=== PATIENT | female | born 1975 | race Caucasian/White ===

== ENCOUNTER 2018-10-20 21:30 | Inpatient (IN) | payer OTHER ==
[~2018-10-20] VITALS: Ht 167.6 cm; Wt 108.0 kg
--- NOTE | 2018-10-20 22:01 | NUR ---
[facility]/o slide from chair to floor at approximately 2100 after feeling cramp in right hip and trying to straighten leg. Pt states she sat on her left leg for approximately 30mins and felt leg numbness after. Right hip replacement 10/17/2018 w/o complications. Received 4 zofran and 200mcg fentanyl IVP group captain from [facility].
[2018-10-20] MEDS ORDERED: ASPI-496 PO (22:07)
[2018-10-20] MEDS ORDERED: CARI350T PO (22:07)
[2018-10-20] MEDS ORDERED: DICL50TA2 PO (22:07)
[2018-10-20] MEDS ORDERED: OXYC5CAP2 PO (22:07)
--- NOTE | 2018-10-20 22:07 | NUR ---
Sensation present in all extemities and pulses present BLE
--- NOTE | 2018-10-20 22:10 | NUR ---
Pt to x-ray
[2018-10-20] MEDS ORDERED: PROPOFOL 10 MG/ML, 20ML ONE (22:25)
[2018-10-20] MEDS ORDERED: SODIUM CHLORIDE FLUSH 10ML SYR IVF ONE (22:30)
[2018-10-20] MEDS ORDERED: PROPOFOL 10 MG/ML, 20ML IVPush ONE (22:30)
[2018-10-20] MEDS ORDERED: SODIUM CHLORIDE 0.9% 1,000ML IVBOLUS ONE (22:30)
--- NOTE | 2018-10-20 22:33 | NUR ---
Pt transferred to Trauma 2; report given to ROSARIO Myles
--- NOTE | 2018-10-20 22:33 | NUR ---
FIRST PT CONTACT AT THIS TIME, CONSCENT OBTAINED, FAMILY TO LOBBY, PT TEARFUL. PT HAS FALSE TEETH PER HER REPORT, WILL REMOVE FOR SAFETY.
--- NOTE | 2018-10-20 22:40 | NUR ---
PROCEDURE BEGUN, DR HOLLIS ADMINISTER MEDICATIONS
--- NOTE | 2018-10-20 22:46 | NUR ---
PT WITH ADEQUATE SEDATION THROUGHOUT PROCEDURE, SPO2 100% CAP 9, AWAIT CHEST XRAY Addendum: 10/20/18 at 2248 by MENDOZA CAP
--- NOTE | 2018-10-20 22:50 | NUR ---
CAPNOGRAPHY NOT FUNCTIONING, PROCEDURE CONTINUE.
--- NOTE | 2018-10-20 23:00 | NUR ---
SLEEPING QUIETLY, AWAKEN VERBAL, SPO2 REMAINS 100% 2L AT THIS TIME,
--- NOTE | 2018-10-20 23:11 | NUR ---
PT AWAKE, ALERT AND ORIENTED, MOVED BACK TO ORIGINAL ROOM AND FAMILY FROM LOBBY.
--- NOTE | 2018-10-20 23:20 | NUR ---
REPORT TO ROSALES PONCE
--- NOTE | 2018-10-21 00:29 | NUR ---
Pt unable to ambulate post reduction c/o increased pain. Report given to ROSARIO Chau
[2018-10-21 01:30] VITALS: BP 103/68
[2018-10-21] MEDS ORDERED: KETOROLAC 30 MG/1 ML IVPush PRN (01:30)
[2018-10-21 02:37] VITALS: BP 103/68
[2018-10-21] MEDS ORDERED: OXYcodone IR 5MG TABLET PO ONE (03:45)
[2018-10-21] MEDS ORDERED: DOCUSATE 100 MG CAPSULE PO PRN (04:30)
[2018-10-21] MEDS: METHOCARBAMOL 500 MG TABLET PO PRN ×4 (04:34→22:41)
[2018-10-21] MEDS: OXYcodone IR 5MG TABLET PO PRN ×4 (04:34→22:41)
[2018-10-21] MEDS: ENOXAPARIN 40 MG/0.4 ML SQ SCH (04:34)
[2018-10-21] MEDS: CARISOPRODOL 350 MG TABLET PO SCH (07:58)
[2018-10-21] MEDS: ASPIRIN 81 MG TABLET EC PO SCH (07:58)
[2018-10-21] MEDS: DICLOFENAC 50 MG TABLET.DR PO SCH (07:58)
[2018-10-21] MEDS: SENNA/DOCUSATE TABLET PO SCH (07:58)
[2018-10-21] MEDS: SODIUM CHLORIDE FLUSH 10ML SYR IVF SCH ×2 (07:59→20:58)
[2018-10-21 08:51] VITALS: BP 103/67
[2018-10-21] MEDS ORDERED: SODIUM CHLORIDE NASAL SPRAY 45ML BOTTLE NAS PRN (09:00)
[2018-10-21 15:37] VITALS: BP 123/72
[2018-10-21 18:37] VITALS: BP 106/70
[2018-10-21] MEDS: LIDODERM 5% PATCH TD SCH (20:55)
[2018-10-21] MEDS: ONDANSETRON 2MG/ML, 2ML IVPush PRN (22:46)
[2018-10-21] MEDS ORDERED: GABAPENTIN 300 MG CAPSULE PO ONE (23:00)
[2018-10-22 02:06] VITALS: BP 117/79
[2018-10-22] MEDS: METHOCARBAMOL 500 MG TABLET PO PRN ×3 (04:37→14:12)
[2018-10-22] MEDS: OXYcodone IR 5MG TABLET PO PRN ×4 (04:37→22:53)
[2018-10-22] MEDS: ENOXAPARIN 40 MG/0.4 ML SQ SCH (04:38)
[2018-10-22 07:14] VITALS: BP 98/53
[2018-10-22] MEDS: DICLOFENAC 50 MG TABLET.DR PO SCH (08:02)
[2018-10-22] MEDS: CARISOPRODOL 350 MG TABLET PO SCH ×3 (08:02→21:01)
[2018-10-22] MEDS: SENNA/DOCUSATE TABLET PO SCH (08:02)
[2018-10-22] MEDS: ASPIRIN 81 MG TABLET EC PO SCH (08:02)
[2018-10-22] MEDS: SODIUM CHLORIDE FLUSH 10ML SYR IVF SCH ×2 (09:00→21:01)
[2018-10-22] MEDS: DICLOFENAC SODIUM 75 MG TABLET.DR PO SCH ×2 (09:00→21:00)
[2018-10-22] MEDS: ONDANSETRON 2MG/ML, 2ML IVPush PRN ×3 (09:20→21:01)
[2018-10-22] MEDS: GABAPENTIN 100 MG CAPSULE PO SCH ×3 (09:20→21:00)
[2018-10-22] MEDS: LIDODERM 5% PATCH TD SCH (09:30)
[2018-10-22] MEDS: POLYETHYLENE GLYCOL 17 GM PACKET PO PRN (09:35)
[2018-10-22 15:44] VITALS: BP 101/67
[2018-10-22 20:32] VITALS: BP 99/56
[2018-10-23] MEDS: METHOCARBAMOL 500 MG TABLET PO PRN ×4 (00:09→23:16)
[2018-10-23 04:39] VITALS: BP 90/57
[2018-10-23] MEDS: OXYcodone IR 5MG TABLET PO PRN ×5 (04:44→22:26)
[2018-10-23] MEDS: ENOXAPARIN 40 MG/0.4 ML SQ SCH (04:44)
[2018-10-23 07:52] VITALS: BP 104/54
[2018-10-23] MEDS: GABAPENTIN 100 MG CAPSULE PO SCH ×3 (09:12→20:49)
[2018-10-23] MEDS: ONDANSETRON 2MG/ML, 2ML IVPush PRN ×3 (09:12→23:16)
[2018-10-23] MEDS: DICLOFENAC SODIUM 75 MG TABLET.DR PO SCH ×2 (09:12→20:49)
[2018-10-23] MEDS: POLYETHYLENE GLYCOL 17 GM PACKET PO PRN (09:13)
[2018-10-23] MEDS: ASPIRIN 81 MG TABLET EC PO SCH (09:13)
[2018-10-23] MEDS: SENNA/DOCUSATE TABLET PO SCH (09:13)
[2018-10-23] MEDS: CARISOPRODOL 350 MG TABLET PO SCH ×2 (09:19→20:58)
[2018-10-23] MEDS: LIDODERM 5% PATCH TD SCH (09:55)
[2018-10-23] MEDS: SODIUM CHLORIDE FLUSH 10ML SYR IVF SCH ×2 (10:18→20:49)
[2018-10-23 13:36] VITALS: BP 97/52
[2018-10-23 19:31] VITALS: BP 100/47
[2018-10-24] MEDS: OXYcodone IR 5MG TABLET PO PRN ×6 (02:49→23:28)
[2018-10-24 03:02] VITALS: BP 99/51
[2018-10-24] MEDS: METHOCARBAMOL 500 MG TABLET PO PRN ×3 (05:57→23:28)
[2018-10-24 07:41] VITALS: BP 92/51
[2018-10-24] MEDS: GABAPENTIN 100 MG CAPSULE PO SCH ×3 (07:52→19:21)
[2018-10-24] MEDS: ASPIRIN 81 MG TABLET EC PO SCH (07:52)
[2018-10-24] MEDS: CARISOPRODOL 350 MG TABLET PO SCH ×2 (07:52→19:21)
[2018-10-24] MEDS: DICLOFENAC SODIUM 75 MG TABLET.DR PO SCH ×2 (07:52→19:21)
[2018-10-24] MEDS: ONDANSETRON 2MG/ML, 2ML IVPush PRN (07:53)
[2018-10-24] MEDS ORDERED: ONDANSETRON ODT 4 MG ONE (07:58)
[2018-10-24] MEDS: SENNA/DOCUSATE TABLET PO SCH (09:00)
[2018-10-24] MEDS: SODIUM CHLORIDE FLUSH 10ML SYR IVF SCH ×2 (09:00→19:22)
[2018-10-24] MEDS: ENOXAPARIN 40 MG/0.4 ML SQ SCH (11:57)
[2018-10-24] MEDS ORDERED: METH500T7 PO (12:10)
[2018-10-24] MEDS ORDERED: GABA-826 PO (12:10)
[2018-10-24 13:50] VITALS: BP 103/64
[2018-10-24] MEDS: LIDODERM 5% PATCH TD SCH (13:56)
[2018-10-24] MEDS: ONDANSETRON ODT 4 MG PO PRN (16:37)
[2018-10-24 20:48] VITALS: BP 98/48
[2018-10-25] MEDS: OXYcodone IR 5MG TABLET PO PRN ×6 (03:43→23:37)
[2018-10-25] MEDS: METHOCARBAMOL 500 MG TABLET PO PRN ×3 (03:43→21:12)
[2018-10-25 03:44] VITALS: BP 105/56
[2018-10-25] MEDS: GABAPENTIN 100 MG CAPSULE PO SCH ×3 (06:49→21:05)
[2018-10-25] MEDS: ONDANSETRON ODT 4 MG PO PRN ×3 (06:49→21:05)
[2018-10-25] MEDS: ASPIRIN 81 MG TABLET EC PO SCH (07:33)
[2018-10-25] MEDS: SENNA/DOCUSATE TABLET PO SCH (07:33)
[2018-10-25] MEDS: DICLOFENAC SODIUM 75 MG TABLET.DR PO SCH ×2 (07:33→21:05)
[2018-10-25 07:41] VITALS: BP 102/51
[2018-10-25] MEDS: CARISOPRODOL 350 MG TABLET PO SCH ×2 (09:38→21:05)
[2018-10-25] MEDS: SODIUM CHLORIDE FLUSH 10ML SYR IVF SCH ×2 (09:38→21:00)
[2018-10-25 12:32] VITALS: BP 109/62
[2018-10-25] MEDS: ENOXAPARIN 40 MG/0.4 ML SQ SCH (12:40)
[2018-10-25 18:53] VITALS: BP 107/68
[2018-10-25] MEDS: LIDODERM 5% PATCH TD SCH (21:13)
[2018-10-25 23:55] VITALS: BP 97/51
[2018-10-26 02:06] VITALS: BP 106/62
[2018-10-26] MEDS: OXYcodone IR 5MG TABLET PO PRN ×5 (03:13→23:18)
[2018-10-26] MEDS: METHOCARBAMOL 500 MG TABLET PO PRN ×4 (03:13→21:33)
[2018-10-26 08:11] VITALS: BP 112/66
[2018-10-26] MEDS: ASPIRIN 81 MG TABLET EC PO SCH (08:28)
[2018-10-26] MEDS: GABAPENTIN 100 MG CAPSULE PO SCH ×3 (08:28→20:46)
[2018-10-26] MEDS: SENNA/DOCUSATE TABLET PO SCH (08:28)
[2018-10-26] MEDS: CARISOPRODOL 350 MG TABLET PO SCH ×2 (08:28→20:46)
[2018-10-26] MEDS: DICLOFENAC SODIUM 75 MG TABLET.DR PO SCH ×2 (08:28→20:46)
[2018-10-26] MEDS: ONDANSETRON ODT 4 MG PO PRN ×3 (08:28→20:51)
[2018-10-26] MEDS: SODIUM CHLORIDE FLUSH 10ML SYR IVF SCH ×2 (09:48→20:47)
[2018-10-26] MEDS: ENOXAPARIN 40 MG/0.4 ML SQ SCH (11:49)
[2018-10-26 16:00] VITALS: BP 98/58
[2018-10-26 19:01] VITALS: BP 104/66
[2018-10-26] MEDS: LIDODERM 5% PATCH TD SCH (20:47)
[2018-10-27 00:23] VITALS: BP 98/59
[2018-10-27] MEDS: OXYcodone IR 5MG TABLET PO PRN ×5 (03:36→21:00)
[2018-10-27] MEDS: METHOCARBAMOL 500 MG TABLET PO PRN ×3 (03:36→21:00)
[2018-10-27 07:16] VITALS: BP 106/66
[2018-10-27] MEDS: DICLOFENAC SODIUM 75 MG TABLET.DR PO SCH ×2 (09:21→22:17)
[2018-10-27] MEDS: CARISOPRODOL 350 MG TABLET PO SCH ×2 (09:22→22:17)
[2018-10-27] MEDS: GABAPENTIN 100 MG CAPSULE PO SCH ×3 (09:22→22:17)
[2018-10-27] MEDS: ASPIRIN 81 MG TABLET EC PO SCH ×2 (09:22→21:00)
[2018-10-27] MEDS: SENNA/DOCUSATE TABLET PO SCH (09:22)
[2018-10-27] MEDS: ONDANSETRON ODT 4 MG PO PRN ×2 (09:22→22:17)
[2018-10-27] MEDS: SODIUM CHLORIDE FLUSH 10ML SYR IVF SCH ×2 (09:29→22:22)
[2018-10-27] MEDS: ENOXAPARIN 40 MG/0.4 ML SQ SCH (11:59)
[2018-10-27 14:54] VITALS: BP 98/60
[2018-10-27 15:00] LABS: INTERNATIONAL NORMALIZED RATIO 1.02 (0.93-1.1); PROTHROMBIN TIME 10.8 Seconds (9.6-11.5)
[2018-10-27 15:01] LABS: ANION GAP 7 mmol/L (5-15); CALCIUM 8.1 mg/dL (8.5-10.1); CHLORIDE 106 mmol/L (98-107); CREATININE 0.52 mg/dL (0.55-1.02)
[2018-10-27 16:34] LABS: MD YES; MEAN CORPUSCULAR HEMOGLOBIN 20.1 pg (27.0-34.8); MEAN CORPUSCULAR HGB CONC 30.6 g/dL (32.4-35.8); MEAN CORPUSCULAR VOLUME 65.5 fL (80-100); PLATELET COUNT 583 x10^3/uL (130-400); RED BLOOD COUNT 3.97 x10^6/uL (3.82-5.3)
[2018-10-27 16:37] LABS: BAND#(MANUAL) 0.09 x10^3/uL; BANDS%(MANUAL) 1 % (0-7); BASOS#(MANUAL) 0.09 x10^3/uL (0-0.1); BASOS% (MANUAL) 1 % (0-1); EOS#(MANUAL) 0.61 x10^3/uL (0.0-0.4); EOS% (MANUAL) 7 % (1-7); LYMPH#(MANUAL) 1.91 x10^3/uL (1-3.4); LYMPHS% (MANUAL) 22 % (22-44); MONOS#(MANUAL) 0.09 x10^3/uL (0.3-2.7); MONOS% (MANUAL) 1 % (2-9); SEG#(MANUAL) 5.92 x10^3/uL (1.8-6.8); SEGS% (MANUAL) 68 % (42-75)
[2018-10-27 16:38] LABS: ANISOCYTOSIS 1+; HYPOCHROMIA 1+; MICROCYTOSIS 1+; POLYCHROMASIA 1+
[2018-10-27 16:39] LABS: <PLATELET ESTIMATE> INCREASED; <PLT MORPHOLOGY> NORMAL PLT MORPH; OVALOCYTES 1+
[2018-10-27 17:15] LABS: HCG UR SG 1.019 (1.003-1.030)
[2018-10-27] MEDS ORDERED: PROPOFOL 10 MG/ML, 20ML ONE (18:00)
[2018-10-27] MEDS ORDERED: MIDAZOLAM 1 MG/ML, 2ML ONE (18:02)
[2018-10-27] MEDS ORDERED: FENTANYL PF 100 MCG/2ML ONE (18:02)
[2018-10-27] MEDS ORDERED: HYDROmorphone 2 MG/ML, 1ML ONE (18:27)
[2018-10-27] MEDS: HYDROmorphone 2 MG/ML, 1ML IVPush PRN ×4 (18:30→19:30)
[2018-10-27] MEDS ORDERED: LORazepam 2 MG/ML, 1ML IVPush PRN (19:00)
[2018-10-27] MEDS ORDERED: FENTANYL PF 100 MCG/2ML IV PRN (19:00)
[2018-10-27] MEDS ORDERED: ACETAMINOPHEN 325 MG TABLET PO PRN (19:00)
[2018-10-27] MEDS ORDERED: MEPERIDINE/PF 25MG/0.5ML IVPush PRN (19:00)
[2018-10-27] MEDS ORDERED: OXYcodone 5 MG/5 ML ORAL.SOL UDC PO PRN (19:00)
[2018-10-27] MEDS ORDERED: ONDANSETRON 2MG/ML, 2ML IV PRN (19:00)
[2018-10-27 20:30] VITALS: BP 104/55
[2018-10-27] MEDS: LIDODERM 5% PATCH TD SCH (22:20)
[2018-10-28 00:07] VITALS: BP 94/55
[2018-10-28] MEDS: OXYcodone IR 5MG TABLET PO PRN ×5 (01:14→21:17)
[2018-10-28 04:14] VITALS: BP 101/60
[2018-10-28] MEDS: METHOCARBAMOL 500 MG TABLET PO PRN ×2 (04:18→12:35)
[2018-10-28 07:44] VITALS: BP 85/51
[2018-10-28] MEDS: DICLOFENAC SODIUM 75 MG TABLET.DR PO SCH ×2 (09:40→21:17)
[2018-10-28] MEDS: CARISOPRODOL 350 MG TABLET PO SCH ×2 (09:41→21:17)
[2018-10-28] MEDS: ASPIRIN 81 MG TABLET EC PO SCH ×2 (09:41→21:17)
[2018-10-28] MEDS: GABAPENTIN 100 MG CAPSULE PO SCH ×3 (09:41→21:18)
[2018-10-28] MEDS: ONDANSETRON ODT 4 MG PO PRN ×3 (09:41→21:39)
[2018-10-28] MEDS: SODIUM CHLORIDE FLUSH 10ML SYR IVF SCH ×2 (09:43→21:00)
[2018-10-28] MEDS: SENNA/DOCUSATE TABLET PO SCH (09:43)
[2018-10-28] MEDS ORDERED: SODIUM CHLORIDE 0.9%, 500ML IVBOLUS ONE (10:00)
[2018-10-28 14:00] VITALS: BP 104/67
[2018-10-28] MEDS ORDERED: OxyconTIN ER 10 MG TAB.ER ONE (16:11)
[2018-10-28] MEDS: OxyconTIN ER 10 MG TAB.ER PO SCH (16:12)
[2018-10-28] MEDS ORDERED: OXYcodone IR 5MG TABLET PO PRN (19:00)
[2018-10-28 19:05] VITALS: BP 100/64
[2018-10-28] MEDS ORDERED: OxyconTIN ER 10 MG TAB.ER PO SCH ×2 (21:00)
[2018-10-28] MEDS: LIDODERM 5% PATCH TD SCH (21:18)
[2018-10-29 00:31] VITALS: BP 105/71
[2018-10-29] MEDS: OxyconTIN ER 10 MG TAB.ER PO SCH (04:17)
[2018-10-29] MEDS: ONDANSETRON ODT 4 MG PO PRN ×2 (04:17→16:13)
[2018-10-29] MEDS: METHOCARBAMOL 500 MG TABLET PO PRN ×2 (04:17→13:52)
[2018-10-29] MEDS: OXYcodone IR 5MG TABLET PO PRN ×4 (06:17→20:18)
[2018-10-29 06:49] VITALS: BP 115/80
[2018-10-29] MEDS: SODIUM CHLORIDE FLUSH 10ML SYR IVF SCH ×2 (08:23→20:18)
[2018-10-29] MEDS: ASPIRIN 81 MG TABLET EC PO SCH ×2 (08:23→20:18)
[2018-10-29] MEDS: SENNA/DOCUSATE TABLET PO SCH (08:23)
[2018-10-29] MEDS: GABAPENTIN 100 MG CAPSULE PO SCH ×3 (08:23→20:18)
[2018-10-29] MEDS: DICLOFENAC SODIUM 75 MG TABLET.DR PO SCH ×2 (08:23→20:18)
[2018-10-29] MEDS: CARISOPRODOL 350 MG TABLET PO SCH ×2 (08:24→20:18)
[2018-10-29] MEDS: ENOXAPARIN 40 MG/0.4 ML SQ SCH (08:28)
[2018-10-29 13:27] VITALS: BP 100/48
[2018-10-29 15:46] LABS: MD YES; MEAN CORPUSCULAR HEMOGLOBIN 19.9 pg (27.0-34.8); MEAN CORPUSCULAR HGB CONC 30.4 g/dL (32.4-35.8); MEAN CORPUSCULAR VOLUME 65.3 fL (80-100); MEAN PLATELET VOLUME 8.3 fL (7.4-10.4); PLATELET COUNT 810 x10^3/uL (130-400); RED CELL DISTRIBUTION WIDTH 29.3 % (9.6-15.2)
[2018-10-29 15:48] LABS: FOLATE LEVEL 11.2 ng/mL (3.1-17.5); THYROID STIMULATING HORMONE 1.84 mIU/L (0.358-3.740)
[2018-10-29 15:49] LABS: EOS#(MANUAL) 0.09 x10^3/uL (0.0-0.4); EOS% (MANUAL) 1 % (1-7); LYMPH#(MANUAL) 2.46 x10^3/uL (1-3.4); LYMPHS% (MANUAL) 28 % (22-44); MONOS% (MANUAL) 8 % (2-9); SEG#(MANUAL) 5.54 x10^3/uL (1.8-6.8); SEGS% (MANUAL) 63 % (42-75)
[2018-10-29 15:50] LABS: ANISOCYTOSIS 1+; HYPOCHROMIA 1+; MICROCYTOSIS 1+
[2018-10-29 15:51] LABS: <PLATELET ESTIMATE> INCREASED; <PLT MORPHOLOGY> NORMAL PLT MORPH
[2018-10-29 16:32] LABS: HCG UR SG 1.005 (1.003-1.030)
[2018-10-29 16:51] LABS: OCCULT BLOOD NEGATIVE (NEGATIVE)
[2018-10-29 19:20] VITALS: BP 100/69
[2018-10-29] MEDS: LIDODERM 5% PATCH TD SCH (20:49)
[2018-10-30] MEDS: OXYcodone IR 5MG TABLET PO PRN ×6 (00:16→23:03)
[2018-10-30] MEDS: METHOCARBAMOL 500 MG TABLET PO PRN ×4 (00:16→18:47)
[2018-10-30 03:53] VITALS: BP 104/52
[2018-10-30 07:33] VITALS: BP 88/53
[2018-10-30] MEDS: ENOXAPARIN 40 MG/0.4 ML SQ SCH (08:47)
[2018-10-30] MEDS: ASPIRIN 81 MG TABLET EC PO SCH ×2 (08:48→20:32)
[2018-10-30] MEDS: SODIUM CHLORIDE FLUSH 10ML SYR IVF SCH ×2 (08:48→21:00)
[2018-10-30] MEDS: DICLOFENAC SODIUM 75 MG TABLET.DR PO SCH ×2 (08:48→20:32)
[2018-10-30] MEDS: SENNA/DOCUSATE TABLET PO SCH (08:48)
[2018-10-30] MEDS: GABAPENTIN 100 MG CAPSULE PO SCH ×3 (08:49→20:32)
[2018-10-30] MEDS: CARISOPRODOL 350 MG TABLET PO SCH ×2 (08:51→20:32)
[2018-10-30] MEDS: ONDANSETRON ODT 4 MG PO PRN ×2 (08:59→17:07)
[2018-10-30] MEDS: CYANOCOBALOMIN 100MCG TABLET PO SCH (12:37)
[2018-10-30 13:03] VITALS: BP 88/58
[2018-10-30] MEDS: FERROUS SULFATE 325 MG TABLET PO SCH (17:07)
[2018-10-30 19:05] VITALS: BP 95/58
[2018-10-30] MEDS: LIDODERM 5% PATCH TD SCH (20:33)
[2018-10-31] VITALS (8 sets, daily range): BP systolic 93–107; BP diastolic 60–75
[2018-10-31] MEDS: METHOCARBAMOL 500 MG TABLET PO PRN ×4 (01:02→19:29)
[2018-10-31] MEDS: OXYcodone IR 5MG TABLET PO PRN ×6 (03:14→23:08)
[2018-10-31 05:41] LABS: MEAN CORPUSCULAR VOLUME 67.4 fL (80-100); MEAN PLATELET VOLUME 8.2 fL (7.4-10.4); PLATELET COUNT 722 x10^3/uL (130-400); RED BLOOD COUNT 3.71 x10^6/uL (3.82-5.3); RED CELL DISTRIBUTION WIDTH 30.4 % (9.6-15.2)
[2018-10-31 06:07] LABS: MD YES; MEAN CORPUSCULAR HGB CONC 29.7 g/dL (32.4-35.8)
[2018-10-31 06:10] LABS: ANISOCYTOSIS 1+; BASOS#(MANUAL) 0.18 x10^3/uL (0-0.1); BASOS% (MANUAL) 2 % (0-1); EOS#(MANUAL) 0.36 x10^3/uL (0.0-0.4); EOS% (MANUAL) 4 % (1-7); HYPOCHROMIA 1+; LYMPH#(MANUAL) 3.06 x10^3/uL (1-3.4); LYMPHS% (MANUAL) 34 % (22-44); MICROCYTOSIS 1+; MONOS#(MANUAL) 0.36 x10^3/uL (0.3-2.7); MONOS% (MANUAL) 4 % (2-9); SEG#(MANUAL) 5.04 x10^3/uL (1.8-6.8); SEGS% (MANUAL) 56 % (42-75)
[2018-10-31 06:11] LABS: <PLATELET ESTIMATE> INCREASED; <PLT MORPHOLOGY> NORMAL PLT MORPH; OVALOCYTES 1+
[2018-10-31] MEDS: SENNA/DOCUSATE TABLET PO SCH (08:24)
[2018-10-31] MEDS: ASPIRIN 81 MG TABLET EC PO SCH ×2 (08:24→21:30)
[2018-10-31] MEDS: DICLOFENAC SODIUM 75 MG TABLET.DR PO SCH ×2 (08:24→21:30)
[2018-10-31] MEDS: FERROUS SULFATE 325 MG TABLET PO SCH ×2 (08:24→16:11)
[2018-10-31] MEDS: CYANOCOBALOMIN 100MCG TABLET PO SCH (08:25)
[2018-10-31] MEDS: CARISOPRODOL 350 MG TABLET PO SCH ×2 (08:25→21:30)
[2018-10-31] MEDS: GABAPENTIN 100 MG CAPSULE PO SCH ×3 (08:25→21:30)
[2018-10-31] MEDS: SODIUM CHLORIDE FLUSH 10ML SYR IVF SCH ×2 (08:26→21:30)
[2018-10-31] MEDS: ONDANSETRON ODT 4 MG PO PRN ×2 (08:26→21:30)
[2018-10-31] MEDS: LIDODERM 5% PATCH TD SCH (21:30)
[2018-11-01 00:13] VITALS: BP 105/67
[2018-11-01] MEDS: OXYcodone IR 5MG TABLET PO PRN ×4 (03:20→23:59)
[2018-11-01] MEDS: METHOCARBAMOL 500 MG TABLET PO PRN ×2 (03:20→09:42)
[2018-11-01 05:34] LABS: MEAN CORPUSCULAR HEMOGLOBIN 20.7 pg (27.0-34.8); MEAN CORPUSCULAR HGB CONC 30.2 g/dL (32.4-35.8); MEAN CORPUSCULAR VOLUME 68.8 fL (80-100); MEAN PLATELET VOLUME 8.2 fL (7.4-10.4); PLATELET COUNT 770 x10^3/uL (130-400); RED BLOOD COUNT 4.22 x10^6/uL (3.82-5.3); RED CELL DISTRIBUTION WIDTH 29.1 % (9.6-15.2)
[2018-11-01 05:55] LABS: MD YES
[2018-11-01 05:57] LABS: ANISOCYTOSIS 1+; EOS#(MANUAL) 0.43 x10^3/uL (0.0-0.4); EOS% (MANUAL) 4 % (1-7); HYPOCHROMIA 1+; LYMPH#(MANUAL) 3.35 x10^3/uL (1-3.4); LYMPHS% (MANUAL) 31 % (22-44); MICROCYTOSIS 1+; MONOS#(MANUAL) 0.43 x10^3/uL (0.3-2.7); MONOS% (MANUAL) 4 % (2-9); POLYCHROMASIA 1+; SEG#(MANUAL) 6.59 x10^3/uL (1.8-6.8); SEGS% (MANUAL) 61 % (42-75)
[2018-11-01 05:58] LABS: <PLATELET ESTIMATE> INCREASED; <PLT MORPHOLOGY> NORMAL PLT MORPH
[2018-11-01 07:41] VITALS: BP 105/69
[2018-11-01] MEDS: ONDANSETRON ODT 4 MG PO PRN ×2 (07:50→21:08)
[2018-11-01] MEDS: GABAPENTIN 100 MG CAPSULE PO SCH ×3 (07:55→20:58)
[2018-11-01] MEDS: FERROUS SULFATE 325 MG TABLET PO SCH ×2 (07:55→17:00)
[2018-11-01] MEDS: DICLOFENAC SODIUM 75 MG TABLET.DR PO SCH ×2 (07:55→20:58)
[2018-11-01] MEDS: CARISOPRODOL 350 MG TABLET PO SCH ×2 (07:55→20:59)
[2018-11-01] MEDS: SENNA/DOCUSATE TABLET PO SCH (07:55)
[2018-11-01] MEDS: CYANOCOBALOMIN 100MCG TABLET PO SCH (07:55)
[2018-11-01] MEDS: ASPIRIN 81 MG TABLET EC PO SCH ×2 (07:56→20:59)
[2018-11-01] MEDS: SODIUM CHLORIDE FLUSH 10ML SYR IVF SCH ×2 (07:56→20:59)
[2018-11-01] MEDS ORDERED: MORPHINE SULFATE 4 MG/ML, 1ML IVPush PRN (12:30)
[2018-11-01 13:36] VITALS: BP 120/72
[2018-11-01] MEDS ORDERED: TRANEXAMIC ACID 100 MG/ML, 10ML ONE ×2 (17:02)
[2018-11-01] MEDS ORDERED: ROPIvacaine/PF 0.5%, 30 ML ONE (17:02)
[2018-11-01] MEDS ORDERED: KETOROLAC 60 MG/2 ML ONE (17:02)
[2018-11-01] MEDS ORDERED: SODIUM CHLORIDE 0.9% 100 ML ONE (17:02)
[2018-11-01] MEDS ORDERED: VANCOMYCIN 1,000 MG ONE (17:02)
[2018-11-01] MEDS ORDERED: EPINEPHRINE 1 MG/ML, 1ML ONE (17:03)
[2018-11-01] MEDS ORDERED: FENTANYL PF 250 MCG/5ML ONE (17:23)
[2018-11-01] MEDS ORDERED: NEOSTIGMINE 1 MG/ML, 10ML ONE (18:30)
[2018-11-01] MEDS ORDERED: PROPOFOL 10 MG/ML, 20ML ONE (18:30)
[2018-11-01] MEDS ORDERED: ONDANSETRON 2MG/ML, 2ML ONE (18:30)
[2018-11-01] MEDS ORDERED: GLYCOPYRROLATE 0.2MG/1ML, 5ML ONE (18:30)
[2018-11-01] MEDS ORDERED: CEFAZOLIN 1,000 MG ONE (18:30)
[2018-11-01] MEDS ORDERED: DEXAMETHASONE 4 MG/ML, 1ML ONE (18:30)
[2018-11-01] MEDS ORDERED: ROCURONIUM 10MG/ML,5ML ONE (18:30)
[2018-11-01] MEDS ORDERED: SUCCINYLCHOLINE 20 MG/ML, 10ML ONE (18:30)
[2018-11-01] MEDS ORDERED: HYDROmorphone 2 MG/ML, 1ML ONE ×2 (18:58→23:08)
[2018-11-01] MEDS ORDERED: FENTANYL PF 100 MCG/2ML IV PRN (19:00)
[2018-11-01] MEDS ORDERED: DIPHENHYDRAMINE 50 MG/ML, 1ML IVPush PRN (19:00)
[2018-11-01] MEDS ORDERED: ACETAMINOPHEN 325 MG TABLET PO PRN (19:00)
[2018-11-01] MEDS ORDERED: hydrALAzine 20 MG/ML, 1ML IV PRN (19:00)
[2018-11-01] MEDS ORDERED: OXYcodone 5 MG/5 ML ORAL.SOL UDC PO PRN (19:00)
[2018-11-01] MEDS ORDERED: LABETALOL 5MG/ML, 20ML IV PRN (19:00)
[2018-11-01] MEDS ORDERED: MEPERIDINE/PF 25MG/0.5ML IVPush PRN (19:00)
[2018-11-01] MEDS: HYDROmorphone 2 MG/ML, 1ML IVPush PRN ×2 (19:00→19:05)
[2018-11-01] MEDS ORDERED: HALOPERIDOL 5 MG/ML IV PRN (19:00)
[2018-11-01] MEDS ORDERED: PROMETHAZINE 25 MG/ML, 1ML IV PRN (19:00)
[2018-11-01] MEDS ORDERED: HYDROmorphone 2 MG/ML, 1ML IVPush PRN (19:30)
[2018-11-01] MEDS ORDERED: DIAZEPAM 5 MG/ML, 2ML IVPush PRN (19:30)
[2018-11-01] MEDS ORDERED: OXYcodone 5 MG/5 ML ORAL.SOL UDC ONE (19:53)
[2018-11-01] MEDS ORDERED: FENTANYL PF 100 MCG/2ML ONE (20:16)
[2018-11-01 20:35] VITALS: BP 110/75
[2018-11-01] MEDS: LIDODERM 5% PATCH TD SCH (20:58)
[2018-11-01] MEDS: ACETAMINOPHEN 500 MG TABLET PO SCH (20:58)
[2018-11-01] MEDS: HYDROmorphone 1 MG/ML, 1ML IV PRN (23:09)
[2018-11-02 00:27] VITALS: BP 121/74
[2018-11-02] MEDS: CEFAZOLIN 2,000 MG in SODIUM CHLORIDE 0.9% 50 ML IV SCH ×2 (01:25→09:06)
[2018-11-02] MEDS: METHOCARBAMOL 500 MG TABLET PO PRN ×4 (01:25→21:10)
[2018-11-02] MEDS ORDERED: HYDROmorphone 2 MG/ML, 1ML ONE ×6 (03:08→18:46)
[2018-11-02] MEDS: HYDROmorphone 1 MG/ML, 1ML IV PRN ×5 (03:10→18:53)
[2018-11-02] MEDS: OXYcodone IR 5MG TABLET PO PRN ×7 (04:04→23:48)
[2018-11-02 04:25] VITALS: BP 100/65
[2018-11-02 05:19] LABS: ANION GAP 6 mmol/L (5-15); CALCIUM 7.3 mg/dL (8.5-10.1); CHLORIDE 105 mmol/L (98-107)
[2018-11-02] MEDS ORDERED: ASPIRIN 81 MG TABLET CHEW PO SCH (06:00)
[2018-11-02 06:38] LABS: MEAN CORPUSCULAR HEMOGLOBIN 21.1 pg (27.0-34.8); MEAN CORPUSCULAR HGB CONC 30.7 g/dL (32.4-35.8); MEAN CORPUSCULAR VOLUME 68.7 fL (80-100); MEAN PLATELET VOLUME 8.2 fL (7.4-10.4); PLATELET COUNT 817 x10^3/uL (130-400); RED BLOOD COUNT 3.95 x10^6/uL (3.82-5.3); RED CELL DISTRIBUTION WIDTH 29.4 % (9.6-15.2)
[2018-11-02 07:03] LABS: MD YES
[2018-11-02 07:06] LABS: EOS#(MANUAL) 0.12 x10^3/uL (0.0-0.4); EOS% (MANUAL) 1 % (1-7)
[2018-11-02 07:08] LABS: ANISOCYTOSIS 1+; HYPOCHROMIA 1+; LYMPH#(MANUAL) 2.42 x10^3/uL (1-3.4); LYMPHS% (MANUAL) 21 % (22-44); MICROCYTOSIS 1+; MONOS#(MANUAL) 1.15 x10^3/uL (0.3-2.7); MONOS% (MANUAL) 10 % (2-9); POLYCHROMASIA 1+; SEG#(MANUAL) 7.82 x10^3/uL (1.8-6.8); SEGS% (MANUAL) 68 % (42-75)
[2018-11-02 07:09] LABS: <PLATELET ESTIMATE> INCREASED; <PLT MORPHOLOGY> NORMAL PLT MORPH
[2018-11-02 08:00] VITALS: BP 94/38
[2018-11-02] MEDS: FERROUS SULFATE 325 MG TABLET PO SCH ×2 (08:01→16:58)
[2018-11-02] MEDS: DICLOFENAC SODIUM 75 MG TABLET.DR PO SCH ×2 (09:06→20:04)
[2018-11-02] MEDS: ONDANSETRON ODT 4 MG PO PRN ×2 (09:06→16:08)
[2018-11-02] MEDS: ACETAMINOPHEN 500 MG TABLET PO SCH ×3 (09:06→20:04)
[2018-11-02] MEDS: SODIUM CHLORIDE FLUSH 10ML SYR IVF SCH ×2 (09:06→20:09)
[2018-11-02] MEDS: SENNA/DOCUSATE TABLET PO SCH (09:07)
[2018-11-02] MEDS: CARISOPRODOL 350 MG TABLET PO SCH ×2 (09:07→20:05)
[2018-11-02] MEDS: ASPIRIN 81 MG TABLET EC PO SCH ×2 (09:07→20:04)
[2018-11-02] MEDS: CYANOCOBALOMIN 100MCG TABLET PO SCH (09:07)
[2018-11-02] MEDS: GABAPENTIN 100 MG CAPSULE PO SCH (09:07)
[2018-11-02 13:45] VITALS: BP 105/57
[2018-11-02] MEDS: GABAPENTIN 300 MG CAPSULE PO SCH ×2 (16:08→20:05)
[2018-11-02 18:59] VITALS: BP 99/67
[2018-11-02] MEDS: LIDODERM 5% PATCH TD SCH (20:04)
[2018-11-03 00:39] VITALS: BP 96/61
[2018-11-03] MEDS ORDERED: HYDROmorphone 2 MG/ML, 1ML ONE ×3 (01:33→10:59)
[2018-11-03] MEDS: HYDROmorphone 1 MG/ML, 1ML IV PRN ×3 (01:36→11:02)
[2018-11-03] MEDS: METHOCARBAMOL 500 MG TABLET PO PRN ×3 (03:15→14:48)
[2018-11-03] MEDS: OXYcodone IR 5MG TABLET PO PRN ×4 (03:15→12:26)
[2018-11-03 06:17] LABS: MEAN CORPUSCULAR HEMOGLOBIN 20.9 pg (27.0-34.8); MEAN CORPUSCULAR VOLUME 70.3 fL (80-100); PLATELET COUNT 784 x10^3/uL (130-400); RED BLOOD COUNT 4.07 x10^6/uL (3.82-5.3); RED CELL DISTRIBUTION WIDTH 31.1 % (9.6-15.2)
[2018-11-03 06:23] LABS: ALBUMIN 2.6 g/dL (3.4-5.0); ANION GAP 7 mmol/L (5-15); CALCIUM 7.4 mg/dL (8.5-10.1); CHLORIDE 105 mmol/L (98-107)
[2018-11-03 06:27] LABS: ALANINE AMINOTRANSFERASE 219 U/L (12-78); ALKALINE PHOSPHATASE 172 U/L (45-117); BILIRUBIN,TOTAL 0.2 mg/dL (0.2-1.0); CREATININE 0.52 mg/dL (0.55-1.02); TOTAL PROTEIN 6.5 g/dL (6.4-8.2)
[2018-11-03 06:48] VITALS: BP 107/66
[2018-11-03 07:24] LABS: MD YES
[2018-11-03 07:25] LABS: MEAN CORPUSCULAR HGB CONC 29.7 g/dL (32.4-35.8)
[2018-11-03 07:26] LABS: EOS#(MANUAL) 0.33 x10^3/uL (0.0-0.4); EOS% (MANUAL) 3 % (1-7)
[2018-11-03 07:27] LABS: LYMPH#(MANUAL) 1.53 x10^3/uL (1-3.4); LYMPHS% (MANUAL) 14 % (22-44); MONOS#(MANUAL) 1.31 x10^3/uL (0.3-2.7); MONOS% (MANUAL) 12 % (2-9); SEG#(MANUAL) 7.74 x10^3/uL (1.8-6.8); SEGS% (MANUAL) 71 % (42-75)
[2018-11-03 07:28] LABS: <PLATELET ESTIMATE> INCREASED; <PLT MORPHOLOGY> NORMAL PLT MORPH; ANISOCYTOSIS 2+; HYPOCHROMIA 1+; MICROCYTOSIS 2+; POLYCHROMASIA 1+
[2018-11-03] MEDS: FERROUS SULFATE 325 MG TABLET PO SCH (07:56)
[2018-11-03] MEDS ORDERED: CALCIUM CARBONATE 500 MG TABLET PO SCH (09:00)
[2018-11-03] MEDS: CYANOCOBALOMIN 100MCG TABLET PO SCH (09:09)
[2018-11-03] MEDS: ONDANSETRON ODT 4 MG PO PRN (09:09)
[2018-11-03] MEDS: SENNA/DOCUSATE TABLET PO SCH (09:09)
[2018-11-03] MEDS: DICLOFENAC SODIUM 75 MG TABLET.DR PO SCH (09:10)
[2018-11-03] MEDS: CARISOPRODOL 350 MG TABLET PO SCH (09:10)
[2018-11-03] MEDS: ASPIRIN 81 MG TABLET EC PO SCH (09:10)
[2018-11-03] MEDS: GABAPENTIN 300 MG CAPSULE PO SCH (09:10)
[2018-11-03] MEDS: ACETAMINOPHEN 500 MG TABLET PO SCH (09:10)
[2018-11-03] MEDS: SODIUM CHLORIDE FLUSH 10ML SYR IVF SCH (09:10)
[2018-11-03] MEDS ORDERED: GABA300C10 PO (10:53)
[2018-11-03] MEDS ORDERED: LIDO700A20 TD (10:53)
[2018-11-03] MEDS ORDERED: CYAN100T PO (10:53)
[2018-11-03] MEDS ORDERED: ASPI81TA45 PO (10:53)
[2018-11-03] MEDS ORDERED: DOCU-131 PO (10:53)
[2018-11-03] MEDS ORDERED: CALC-666 PO (10:53)
[2018-11-03] MEDS ORDERED: FERR-51 PO (10:53)
[2018-11-03 14:21] VITALS: BP 113/70
== END 2018-11-03 12:53 | disposition home or self-care (01) | DRG 468 ==
LOC: ED 22:41 → 4NOR 23:59 → UNDOADMOB 23:59 → EDIP 23:59 → INTOOBSV 23:59 → 4NOR 10-21 01:00 → EDIP 10-21 01:00 → INTOOBSV 10-30 08:40 → OBSVTOIN 10-30 08:40 → 4NOR 11-03 15:10 → DCLOUNGE 11-03 15:10 → UNDODISIN 11-03 15:27
PROVIDERS: ADMIT Family Medicine; ATTEND Emergency Medicine
PROC: 0SW9XJZ Revision of Synthetic Substitute in Right Hip Joint, External Approach (ICD-10-PCS; 2018-10-20)
PROC: 0SW9XJZ Revision of Synthetic Substitute in Right Hip Joint, External Approach (ICD-10-PCS; 2018-10-27)
PROC: 30233N1 Transfusion of Nonautologous Red Blood Cells into Peripheral Vein, Percutaneous Approach (ICD-10-PCS; 2018-10-31)
PROC: 0SP90JZ Removal of Synthetic Substitute from Right Hip Joint, Open Approach (ICD-10-PCS; 2018-11-01)
PROC: 0SR90JA Replacement of Right Hip Joint with Synthetic Substitute, Uncemented, Open Approach (ICD-10-PCS; principal; 2018-11-01 17:00)
DX: T84.020A Dislocation of internal right hip prosthesis, initial encounter (principal); M16.11 Unilateral primary osteoarthritis, right hip; G89.4 Chronic pain syndrome; E66.01 Morbid (severe) obesity due to excess calories; Y79.2 Prosthetic and other implants, materials and accessory orthopedic devices associated with adverse incidents; B96.89 Other specified bacterial agents as the cause of diseases classified elsewhere; D63.1 Anemia in chronic kidney disease; N18.9 Chronic kidney disease, unspecified; D47.3 Essential (hemorrhagic) thrombocythemia; D50.9 Iron deficiency anemia, unspecified; W01.0XXA Fall on same level from slipping, tripping and stumbling without subsequent striking against object, initial encounter; Y93.89 Activity, other specified; Y92.89 Other specified places as the place of occurrence of the external cause; Y99.8 Other external cause status; Z68.38 Body mass index [BMI] 38.0-38.9, adult; Z79.891 Long term (current) use of opiate analgesic; Z88.5 Allergy status to narcotic agent; Z88.6 Allergy status to analgesic agent; Z88.8 Allergy status to other drugs, medicaments and biological substances
CPT/HCPCS: 27250; 36415; 72170; 73501; 73502; 76000; 76001; 99285; J3490; 80048; 80053; 80307; 81025; 82272; 82330; 82607; 82728; 82746; 83540; 83550; 83615; 83735; 84443; 84702; 85025; 85610; 86850; 86900; 86923; 87070; 87075; 87176; 87205; C1713; G0378; J0171; J0690; J1100; J1170; J1650; J1885; J2250; J2405; J2704; J2710; J2795; J3010; J3360; J3370; Q0162; C1776; J0330; J7030; J7040; P9016

== ENCOUNTER 2019-05-17 12:41 | Outpatient (CLI) | payer OTHER ==
[~2019-05-17 12:41] MED LIST: ASPI-496 PO; ASPI81TA45 PO; CALC-666 PO; CARI350T PO; CYAN100T2 PO; DICL50TA2 PO; DOCU-131 PO; FERR-51 PO; GABA-826 PO; GABA300C10 PO; LIDO700A20 TD; METH500T7 PO; OXYC5CAP2 PO
[2019-05-17 13:43] LABS: BASOPHILS # (AUTO) 0.05 x10^3/uL (0-0.1); BASOPHILS % (AUTO) 1 % (0-1); EOSINOPHILS # (AUTO) 0.38 x10^3/uL (0-0.4); EOSINOPHILS % (AUTO) 7 % (1-7); LYMPHOCYTES # (AUTO) 2.19 x10^3/uL (1-3.4); LYMPHOCYTES % (AUTO) 40 % (22-44); MD NO; MEAN CORPUSCULAR HEMOGLOBIN 24.4 pg (27.0-34.8); MEAN CORPUSCULAR HGB CONC 31.2 g/dL (32.4-35.8); MEAN CORPUSCULAR VOLUME 78.3 fL (80-100); MEAN PLATELET VOLUME 8.4 fL (7.4-10.4); MONOCYTES # (AUTO) 0.64 x10^3/uL (0.2-0.8); MONOCYTES % (AUTO) 11 % (2-9); NEUTROPHILS # (AUTO) 2.29 x10^3/uL (1.8-6.8); NEUTROPHILS % (AUTO) 41 % (42-75); PLATELET COUNT 325 x10^3/uL (130-400); RED BLOOD COUNT 4.54 x10^6/uL (3.82-5.3); RED CELL DISTRIBUTION WIDTH 19.7 % (9.6-15.2)
[2019-05-18] MEDS ORDERED: ONDA4TAB7 PO (09:56)
[2019-05-18] MEDS ORDERED: DOXY150T PO (09:56)
[2019-05-18] MEDS ORDERED: [UNRECOGNIZED DRUG - OTHER] PO (09:56)
[2019-05-18] MEDS ORDERED: FERR324T5 PO (09:56)
[2019-05-18] MEDS ORDERED: GABA300C10 PO (09:56)
[2019-05-18] MEDS ORDERED: AMOX-291 PO (09:56)
[2019-05-18] MEDS ORDERED: HYDR-3240 PO (09:56)
[2019-05-18] MEDS ORDERED: CYAN100T2 PO (09:56)
[2019-05-22] MEDS ORDERED: OXYC5CAP2 PO (07:05)
== END 2019-05-17 23:59 | disposition home or self-care (01) ==
LOC: STAR 12:41
PROVIDERS: ATTEND Orthopaedic Surgery
DX: Z01.818 Encounter for other preprocedural examination (principal); M76.11 Psoas tendinitis, right hip; M70.71 Other bursitis of hip, right hip
CPT/HCPCS: 36415; 85025

== ENCOUNTER 2019-05-22 06:23 | Day surgery (SDC) | payer OTHER ==
[~2019-05-22] VITALS: Ht 167.6 cm; Wt 116.8 kg
[2019-05-22 07:31] VITALS: BP 141/66
== END 2019-05-22 11:30 | disposition home or self-care (01) ==
LOC: OUT 06:23
PROVIDERS: ATTEND Orthopaedic Surgery
DX: M76.11 Psoas tendinitis, right hip (principal); M65.851 Other synovitis and tenosynovitis, right thigh; E66.01 Morbid (severe) obesity due to excess calories; Z88.8 Allergy status to other drugs, medicaments and biological substances; Z82.61 Family history of arthritis; Z82.3 Family history of stroke; Z82.49 Family history of ischemic heart disease and other diseases of the circulatory system
CPT/HCPCS: 29999; 73501; 76000; 81025; J0171; J0690; J1100; J1170; J2405; J2704; J2795; J3010; J7120

== ENCOUNTER 2019-06-15 15:06 | Outpatient (CLI) | payer OTHER | END 2019-06-15 23:59 | disposition home or self-care (01) | LOC: CFH 15:06 | PROVIDERS: ATTEND Family Medicine | DX: M48.061 Spinal stenosis, lumbar region without neurogenic claudication (principal); M51.16 Intervertebral disc disorders with radiculopathy, lumbar region; M47.26 Other spondylosis with radiculopathy, lumbar region | CPT/HCPCS: 72148 ==

== ENCOUNTER 2020-08-13 07:48 | Outpatient (CLI) | payer OTHER ==
[~2020-08-13 07:48] MED LIST changes: +AMOX-291 PO; -CALC-666 PO; +CALC500T14 PO; -CYAN100T2 PO; +CYAN100T22 PO; +DOXY150T PO; +FERR324T5 PO; +HYDR-3240 PO; +ONDA4TAB7 PO; +[UNRECOGNIZED DRUG - OTHER] PO
== END 2020-08-13 23:59 | disposition home or self-care (01) ==
LOC: CFH 07:48
DX: M47.817 Spondylosis without myelopathy or radiculopathy, lumbosacral region (principal); M51.36 Other intervertebral disc degeneration, lumbar region; M96.1 Postlaminectomy syndrome, not elsewhere classified
CPT/HCPCS: 72146; 72148

== ENCOUNTER 2021-02-06 11:09 | Emergency (ER) | payer OTHER ==
[~2021-02-06] VITALS: Ht 167.6 cm; Wt 112.5 kg
[~2021-02-06 11:09] MED LIST changes: +HYDR-1067 PO; -HYDR-3240 PO; +METH-639 PO; -METH500T7 PO
--- NOTE | 2021-02-06 11:27 | NUR ---
PT C/O UPPER ABD PAIN AND NAUSEA. PT STATES SHE ALSO HAS BEEN HAVING PERIODIC SWELLING IN HER LOWER EXT'S. PT IS GOING THROUGH MENOPAUSE AND HAS BEEN EXPERIENCING ERRATIC PERIODS AND SWEATING.
--- NOTE | 2021-02-06 11:42 | NUR ---
ULTRASOUND AND LAB BEDSIDE
[2021-02-06 11:50] LABS: MICROSCOPIC NOT IND
[2021-02-06 11:51] LABS: MEAN CORPUSCULAR HEMOGLOBIN 16.7 pg (27.0-34.8); MEAN PLATELET VOLUME 8.7 fL (7.4-10.4); PLATELET COUNT 706 x10^3/uL (130-400); RED BLOOD COUNT 4.42 x10^6/uL (3.82-5.3); RED CELL DISTRIBUTION WIDTH 21.8 % (9.6-15.2)
[2021-02-06 12:02] LABS: ALANINE AMINOTRANSFERASE 21 U/L (12-78); ALBUMIN 4.2 g/dL (3.4-5.0); ANION GAP 6 mmol/L (5-15); CHLORIDE 105 mmol/L (98-107); CREATININE 0.65 mg/dL (0.55-1.02)
[2021-02-06 12:07] LABS: ALKALINE PHOSPHATASE 77 U/L (45-117); BILIRUBIN,TOTAL 0.3 mg/dL (0.2-1.0); TOTAL PROTEIN 8.5 g/dL (6.4-8.2)
[2021-02-06 12:11] LABS: MEAN CORPUSCULAR HGB CONC 29.7 g/dL (32.4-35.8)
[2021-02-06 12:12] LABS: MD YES
[2021-02-06 12:13] LABS: EOS#(MANUAL) 0.16 x10^3/uL (0.0-0.4); EOS% (MANUAL) 2 % (1-7); LYMPH#(MANUAL) 1.76 x10^3/uL (1-3.4); LYMPHS% (MANUAL) 22 % (22-44); MONOS#(MANUAL) 0.64 x10^3/uL (0.3-2.7); MONOS% (MANUAL) 8 % (2-9)
--- NOTE | 2021-02-06 12:13 | NUR ---
BREAK RN: VIDHI, CALL LIGHT W/I REACH. US RESULTS PENDING
[2021-02-06 12:14] LABS: BASOS#(MANUAL) 0.16 x10^3/uL (0-0.1); BASOS% (MANUAL) 2 % (0-1); SEG#(MANUAL) 5.28 x10^3/uL (1.8-6.8); SEGS% (MANUAL) 66 % (42-75)
[2021-02-06 12:15] LABS: ANISOCYTOSIS 2+; HYPOCHROMIA 2+; MICROCYTOSIS 3+
[2021-02-06 12:16] LABS: <PLATELET ESTIMATE> INCREASED; <PLT MORPHOLOGY> NORMAL PLT MORPH; OVALOCYTES 1+; POLYCHROMASIA 1+
[2021-02-06 12:17] LABS: HEMOGRAM NOTE RECHECKED
--- NOTE | 2021-02-06 12:59 | NUR ---
PT REC'VD DISCHARGE INSTRUCTIONS AND EDUCATION. PT HAD NO FURTHER QUESTIONS. PT AMBULATED TO DC AREA, STEADY GAIT.
[2021-02-06 13:00] VITALS: BP 111/64
== END 2021-02-06 13:05 | disposition home or self-care (01) ==
LOC: ED 12:46
DX: R10.11 Right upper quadrant pain (principal); R10.12 Left upper quadrant pain; R10.13 Epigastric pain; D53.9 Nutritional anemia, unspecified; E66.9 Obesity, unspecified; Z68.41 Body mass index [BMI] 40.0-44.9, adult; Z88.5 Allergy status to narcotic agent
CPT/HCPCS: 36415; 76700; 80053; 81003; 83690; 84703; 85025; 99284

== ENCOUNTER 2021-02-16 07:47 | Outpatient (CLI) | payer OTHER ==
[~2021-02-16 07:47] MED LIST changes: -HYDR-1067 PO; +HYDR-2214 PO
[2021-02-16] MEDS ORDERED: OMNIPAQUE 350 MG/ML, 100ML BOTTLE ONE (11:52)
== END 2021-02-16 23:59 | disposition home or self-care (01) ==
LOC: CFH 07:47
PROVIDERS: ATTEND Thoracic Surgery (Cardiothoracic Vascular Surgery)
DX: D73.89 Other diseases of spleen (principal); R10.9 Unspecified abdominal pain
CPT/HCPCS: 74177; Q9967

== ENCOUNTER → 2021-03-25 | Outpatient (CLI) | payer OTHER | END | disposition home or self-care (01) | LOC: RAD 07:29 | PROVIDERS: ATTEND Thoracic Surgery (Cardiothoracic Vascular Surgery) | DX: R10.9 Unspecified abdominal pain (principal); Z98.84 Bariatric surgery status; Z96.641 Presence of right artificial hip joint | CPT/HCPCS: 74240 ==